=== PATIENT | female | born 1965 | race Caucasian/White ===

== ENCOUNTER 2017-01-28 11:12 | Outpatient (CLI) | payer BC | END 2017-01-28 11:13 | disposition home or self-care (01) | LOC: CTENTCT 11:12 | PROVIDERS: ATTEND Otolaryngology Plastic Surgery within the Head & Neck | DX: J32.9 Chronic sinusitis, unspecified (principal) | CPT/HCPCS: 70486 ==

== ENCOUNTER 2017-04-23 05:52 | Emergency (ER) | payer BC ==
--- NOTE | 2017-04-23 08:15 | RAD ---
PORTABLE CHEST ONE VIEW: 04/23/2017 7:14 a.m. HISTORY: Cough. Congestion. FINDINGS: The heart size is normal. The lungs are well expanded without focal areas of consolidation, pneumoth orax, or pleural effusions. IMPRESSION: No radiographic evidence of acute cardiopulmonary process. POS: [facility]
[2017-04-23 08:42] LABS: #Eosinphils 0.5 thou/uL (0.0-0.7); #Lymphocytes 2.9 thou/uL (1.20-3.40); #Monocytes 0.6 thou/uL (0.11-0.59); #Neutrophils 7.1 thou/uL (1.40-6.50); %Basophils 0.3 % (0.0-1.0); %Eosinophils 4.6 % (0.0-10.0); %Lymphocytes 25.8 % (21.0-51.0); %Monocytes 5.7 % (0.0-10.0); %Neutrophils 63.6 % (42.0-75.0); Hemoglobin 13.7 g/dL (12.0-16.0); Mean Corpuscular HGB CONC 33.5 g/dL (32.0-36.0); Mean Corpuscular Volume 92.4 fl (81.0-99.0); Mean Platelet Volume 7.6 fL (7.4-10.4); Platelet Count 300 thou/uL (130-400); RBC Distribution Width 11.7 % (11.5-14.5); Red Blood Cell (RBC) Count 4.43 mill/uL (4.20-5.40); White Blood Cell (WBC) Count 11.2 thou/uL (4.8-10.8)
[2017-04-23 09:01] LABS: Anion Gap 13 mmol/L (10-20); BUN (Urea Nitrogen) 14 mg/dL (7.0-18.7); CK (CPK) 109 U/L (29-168); Calc. Creatinine Clearance 0 mL/min (70-130); Calcium 9.4 mg/dL (7.8-10.44); Carbon Dioxide 24 mmol/L (22-29); Chloride 106 mmol/L (98-107); Estimated GFR-MDRD 76; Glucose 111 mg/dL (70-105); Lipase 25 U/L (8-78); Potassium 3.9 mmol/L (3.5-5.1); Sodium 139 mmol/L (136-145)
[2017-04-23 09:05] LABS: Troponin I Less than 0.010 ng/mL (< 0.028)
--- NOTE | 2017-05-17 15:14 | EKG ---
Test Reason : Blood Pressure : / mmHG Vent. Rate : 073 BPM Atrial Rate : 073 BPM P-R Int : 142 ms QRS Dur : 066 ms QT Int : 398 ms P-R-T Axes : 043 032 035 degrees QTc Int : 438 ms Normal sinus rhythm Possible Left atrial enlargement Borderline ECG Confirmed by KAIN GROVE, ESTEFANIA ([id number]), photograph editor KENNETH DAWSON ([id number]) on 05/17/2017 3:14:02 PM Referred By: KAIN Confirmed By:ESTEFANIA FINNEGAN MD
== END 2017-04-23 09:20 | disposition home or self-care (01) ==
LOC: ERS 05:52
DX: R05 Cough (principal); R07.9 Chest pain, unspecified; E78.5 Hyperlipidemia, unspecified; Z79.899 Other long term (current) drug therapy
CPT/HCPCS: 36415; 71045; 80048; 82550; 82553; 83690; 84484; 85025; 87081; 87430; 87804; 93005

== ENCOUNTER 2018-01-01 14:27 | Outpatient (CLI) | payer BC | END 2018-01-01 14:28 | disposition home or self-care (01) | LOC: BICMAMMO 14:27 | PROVIDERS: ATTEND Physician Assistant | DX: Z12.31 Encounter for screening mammogram for malignant neoplasm of breast (principal) | CPT/HCPCS: 77063; 77067 ==

== ENCOUNTER 2019-01-07 09:13 | Outpatient (CLI) | payer BC ==
--- NOTE | 2019-01-07 10:01 | MMO ---
Bilateral MAMMO Bilat Screen [facility]. CLINICAL HISTORY: Patient is 53 years old and is seen for screening. The patient has no family history of breast cancer. The patient has no personal history of cancer. VIEWS: The views performed were: bilateral craniocaudal with tomosynthesis and bilateral mediolateral oblique with tomosynthesis. FILMS COMPARED: The present examination has been compared to prior imaging studies performed at [facility] on 06/22/2012, 08/28/2015, 12/13/2016 and 01/01/2018. This study has been interpreted with the assistance of computer-aided detection. MAMMOGRAM FINDINGS: There are scattered fibroglandular densities. There are no suspicious masses, suspicious calcifications, or new areas of architectural distortion. IMPRESSION: THERE IS NO MAMMOGRAPHIC EVIDENCE OF MALIGNANCY. A ROUTINE FOLLOW-UP MAMMOGRAM IN 1 YEAR IS RECOMMENDED. THE RESULTS OF THIS EXAM WERE SENT TO THE PATIENT. ACR BI-RADS Category 1 - Negative MAMMOGRAPHY NOTE: 1. A negative mammogram report should not delay a biopsy if a dominant of clinically suspicious mass is present. 2. Approximately 10% to 15% of breast cancers are not detected by mammography. 3. Adenosis and dense breasts may obscure an underlying neoplasm. Reported by: THOMAS LANIER MD Electonically Signed: [id number]
== END 2019-01-07 09:14 | disposition home or self-care (01) ==
LOC: BICMAMMO 09:13
PROVIDERS: ATTEND Family Medicine
DX: Z12.31 Encounter for screening mammogram for malignant neoplasm of breast (principal)
CPT/HCPCS: 77063; 77067

== ENCOUNTER 2019-10-29 15:01 | Outpatient (CLI) | payer BC ==
--- NOTE | 2019-10-29 16:08 | RAD ---
LEFT WRIST THREE VIEWS: 10/29/19 HISTORY: Pain. FINDINGS: Intercarpal and radiocarpal joint spaces are preserved. No fracture, cortical irregularity, or perios teal reaction. IMPRESSION: No acute abnormality. POS: [facility]
--- NOTE | 2019-10-29 16:27 | RAD ---
EXAM: LEFT HAND THREE VIEWS: 10/29/19 HISTORY: Pain to metacarpals x3 weeks. COMPARISON: None. FINDINGS: No fracture, cortical irregularity or periosteal reaction. IMPRESSION: No acute abnormality. POS: [facility]
== END 2019-10-29 15:02 | disposition home or self-care (01) ==
LOC: BICRAD 15:01
PROVIDERS: ATTEND Physician Assistant
DX: M25.532 Pain in left wrist (principal); M79.642 Pain in left hand

== ENCOUNTER 2019-12-10 12:00 | Outpatient (CLI) | payer BC ==
--- NOTE | 2019-12-10 12:32 | RAD ---
RADIOGRAPH LUMBAR SPINE 2 VIEWS: DATE: 12/10/2019 HISTORY: 54-year-old female with low back pain FINDINGS: 5 lumbar-type vertebrae. Vertebral body heights are maintained. Alignment is normal. No scoliosis. At L4-5, mild disc space narrowing and small endplate marginal osteophytes that encroach upon the anterior aspect of spinal canal. IMPRESSION: At least mild degenerative disc changes at L4-5.
== END 2019-12-10 12:01 | disposition home or self-care (01) ==
LOC: BICRAD 12:00
PROVIDERS: ATTEND Family Medicine
DX: M54.5 Low back pain (principal); M51.36 Other intervertebral disc degeneration, lumbar region
CPT/HCPCS: 72100

== ENCOUNTER 2020-01-11 14:25 | Outpatient (CLI) | payer BC ==
--- NOTE | 2020-01-11 16:17 | MMO ---
Bilateral MAMMO Bilat Screen [facility]. CLINICAL HISTORY: Patient is 54 years old and is seen for screening. The patient has no family history of breast cancer. The patient has no personal history of cancer. VIEWS: The views performed were: bilateral craniocaudal with tomosynthesis and bilateral mediolateral oblique with tomosynthesis. FILMS COMPARED: The present examination has been compared to prior imaging studies performed at [facility] on 08/28/2015, 12/13/2016, 01/01/2018 and 01/07/2019. This study has been interpreted with the assistance of computer-aided detection. MAMMOGRAM FINDINGS: The breasts are almost entirely fat. There are no suspicious masses, suspicious calcifications, or new areas of architectural distortion. IMPRESSION: THERE IS NO MAMMOGRAPHIC EVIDENCE OF MALIGNANCY. A ROUTINE FOLLOW-UP MAMMOGRAM IN 1 YEAR IS RECOMMENDED. THE RESULTS OF THIS EXAM WERE SENT TO THE PATIENT. ACR BI-RADS Category 1 - Negative MAMMOGRAPHY NOTE: 1. A negative mammogram report should not delay a biopsy if a dominant of clinically suspicious mass is present. 2. Approximately 10% to 15% of breast cancers are not detected by mammography. 3. Adenosis and dense breasts may obscure an underlying neoplasm. Reported by: KAYLA THOMPSON MD Electonically Signed: [id number]
== END 2020-01-11 14:26 | disposition home or self-care (01) ==
LOC: BICMAMMO 14:25
PROVIDERS: ATTEND Family Medicine
DX: Z12.31 Encounter for screening mammogram for malignant neoplasm of breast (principal)
CPT/HCPCS: 77063; 77067

== ENCOUNTER 2021-09-05 09:30 | Outpatient (CLI) | payer SELFPAY | END 2021-09-05 09:31 | disposition home or self-care (01) | LOC: TBSIIMAG 09:30 | PROVIDERS: ATTEND Neurological Surgery | DX: M54.12 Radiculopathy, cervical region (principal); Z98.890 Other specified postprocedural states | CPT/HCPCS: 72040 ==